=== PATIENT | female | born 1995 | race Hispanic/Latino ===

== ENCOUNTER 2017-07-21 11:25 | Emergency (ER) | payer MEDICAID, OTHER ==
[2017-07-21 12:06] LABS: APPEARANCE,URINE Turbid (CLEAR); BILIRUBIN,URINE Negative (NEGATIVE); COLOR,URINE Dark Yellow (YELLOW); GLUCOSE, URINE (UA) Negative (NEGATIVE); KETONES,URINE Negative (NEGATIVE); LEUKOCYTE ESTERASE ,URINE Large (NEGATIVE); NITRATE,URINE Positive (NEGATIVE); OCCULT BLOOD,URINE Large (NEGATIVE); PH,URINE 5.5 (5.0-8.0); PROTEIN,URINE POS 2+ (NEGATIVE)
[2017-07-21 12:16] LABS: BACTERIA,URINE Few /HPF (None Seen); SQUAMOUS EPITHELIAL CELL,UR Few /LPF (0-2); WBC,URINE TNTC /HPF (0-1)
== END 2017-07-21 12:42 | disposition home or self-care (01) ==
LOC: EDH 11:25
DX: N39.0 Urinary tract infection, site not specified (principal)
CPT/HCPCS: 81001; 81025